=== PATIENT | female | born 1985 | race Caucasian/White ===

== ENCOUNTER 2023-12-19 09:45 | Emergency (ER) | payer BC, SELFPAY ==
--- NOTE | 2023-12-19 09:55 | ED.GENADULT ---
HPI - General Adult General Chief complaint: Skin/Abscess/Foreign Body Stated complaint: R EYE SWELLING/REDNESS Time Seen by Provider: 12/19/23 09:58 Source: patient Mode of arrival: ambulatory Limitations: no limitations History of Present Illness HPI narrative: 38-year-old female patient presents to [facility] with complaints of pain to the right eye area. Patient states she woke up this morning with her the skin around the right eye all read. Patient does were glasses but denies any new vision changes. Denies any drainage coming from the eye. Patient states that the area is painful. Patient states she has been dealing with issues of having some low allergic reactions she thinks could be associated with her makeup. Patient states she does take Claritin daily. Related Data Allergies Allergy/AdvReac Type Severity Reaction Status Date / Time amoxicillin [From Augmentin] AdvReac Vomiting Verified 12/19/23 10:09 clavulanic acid AdvReac Vomiting Verified 12/19/23 10:09 [From Augmentin] Review of Systems Review of Systems: CONSTITUTIONAL: Denies fever, chills, or sweats. EYES: Denies visual changes, redness, or discharge. ENT: Denies rhinorrhea, congestion, sore throat, or otalgia. CARDIOVASCULAR: Denies chest pain, palpitations, or edema. RESPIRATORY: Denies cough or dyspnea. GASTROINTESTINAL: Denies abdominal pain, nausea, vomiting, or diarrhea. GENITOURINARY: Denies dysuria or hematuria. SKIN: Positive rash with pain to the right eye area. No itching. no open wounds or drainage noted MUSCULOSKELETAL: Denies back pain, joint pain, or myalgia. NEUROLOGIC: Denies headache, numbness, or weakness. PSYCHIATRIC: Denies anxiety or depression. PMFSH Comments At the time of my signature I agree with nursing past medical history, surgical, social, and family history. There is no relevant family history pertinent to the presenting complaint. Exam Narrative: GENERAL: Well-appearing, well-nourished, and in no acute distress. HEAD: Normocephalic, atraumatic. EYES: PERRLA and EOMI. ENT: Nares clear, no rhinorrhea or epistaxis. Mucous membranes moist. NECK: Supple. No lymphadenopathy CHEST: Clear to auscultation. No respiratory distress. HEART: Regular rate and rhythm. No murmur heard. Normal peripheral pulses. ABDOMEN: Soft, nontender, nondistended, normal active bowel sounds. EXTREMITIES: Normal range of motion. No edema. SKIN: patient has an area of redness and it is slightly warm to the lateral side of the right eye with some swelling compared to the left eye. There is no open wounds or drainage noted. It does not appear that eyeball itself is affected at all. NEURO: No focal deficits. Alert and oriented x3. Course Course Level of Care: Express Care Visit Vital Signs Vital signs: Vital Signs Temperature 37.6 C H 12/19/23 09:59 Pulse Rate 108 H 12/19/23 09:59 Respiratory Rate 16 12/19/23 09:59 Blood Pressure 134/79 12/19/23 09:59 Pulse Oximetry 100 12/19/23 09:59 Temperature 37.6 C H 12/19/23 09:59 Pulse Rate 108 H 12/19/23 09:59 Respiratory Rate 16 12/19/23 09:59 Blood Pressure 134/79 12/19/23 09:59 Pulse Oximetry 100 12/19/23 09:59 vital signs reviewed. The patient has been informed that they may have pre-hypertension or Hypertension based on a BP reading in the department. I recommend that the patient call the primary care provider listed on their discharge instructions or a physician of their choice this week to arrange follow up for further evaluation of possible pre-hypertension or Hypertension Medical Decision Making MDM Narrative Medical decision making narrative: Plan care for patient is to discharge home with oral antibiotics for a possible periorbital cellulitis infection. Discussed with patient that she should clean the area with soap water I would recommend that she not wear makeup at this time and possibly get all new makeup in case it has bacteria i
[2023-12-19 09:59] VITALS: BP 134/79; PULSE 108; RESP 16; TEMP 37.6; O2SAT 100
== END 2023-12-19 10:22 | disposition home or self-care (01) ==
PROVIDERS: Emergency Provider Nurse Practitioner Family; PCP Nurse Practitioner
DX: L03.213 Periorbital cellulitis (principal)
CPT/HCPCS: 99213; G0463

== ENCOUNTER 2024-01-05 09:25 | Outpatient (CLI) | payer BC, SELFPAY ==
[2024-01-05 19:33] LABS: Basophils Absolute Auto 0.1 K/mm3 (0.0-0.1); Basophils Percent Auto 0.6 % (0.2-1.2); Hematocrit 41.8 % (37.0-47.0); Hemoglobin 13.1 g/dL (12.0-15.0); Immature Granulocyte Absolute 0.02 K/mm3 (0.00-0.031); Immature Granulocyte Percent A 0.3 % (0-0.5); Lymphocytes Absolute Auto 2.36 K/mm3 (0.9-3.2); Lymphocytes Percent Auto 30.6 % (18.3-44.2); Mean Corpuscular HGB Conc 31.3 g/dl (32-36); Mean Corpuscular Hemoglobin 29.4 pg (26-34); Mean Corpuscular Volume 93.9 fl (80-100); Mean Platelet Volume 10.3 fl (7.4-10.4); Monocytes Absolute Auto 0.6 K/mm3 (0.1-0.6); Monocytes Percent Auto 7.5 % (2.6-8.5); Neutrophils Absolute Auto 4.7 K/mm3 (1.3-6.7); Platelet Count Result 278 k/mm3 (150-375); Red Blood Count 4.45 M/mm3 (4.2-5.4); Red Cell Distribution Width 13.2 % (11.5-14.5); White Blood Count 7.7 K/mm3 (4.5-10.0)
[2024-01-05 21:19] LABS: Chloride 100 mmol/L (98-107); Potassium 4.4 mmol/L (3.4-5.0)
[2024-01-05 21:25] LABS: Alanine Aminotransferase 49 U/L (6-35); Albumin Level 4.5 g/dL (3.5-5.1); Alkaline Phosphatase 74 U/L (38-126); Anion Gap 8 mmol/L (4-12); Aspartate Amino Transferase 79 U/L (14-36); Bilirubin,Total 0.4 mg/dL (0.2-1.3); Blood Urea Nitrogen 18 mg/dL (7-17); Calcium 9.6 mg/dL (8.4-10.2); Carbon Dioxide 31 mmol/L (22-30); Cholesterol 172 mg/dL (0-200); Estimated Glomerular Filt Rate > 60; Glucose 93 mg/dL (65-110); HDL Direct 43 mg/dL; Sodium 139 mmol/L (137-145); Triglycerides 141 mg/dL (<150)
[2024-01-05 21:30] LABS: LDL Cholesterol Direct 96 mg/dL
[2024-01-05 21:49] LABS: Thyroid Stimulating Hormone 0.553 uIU/mL (0.465-4.680)
== END 2024-01-05 09:26 | disposition home or self-care (01) ==
LOC: ANHGOSHLAB 09:26
PROVIDERS: PCP Nurse Practitioner; Visit Provider Nurse Practitioner
DX: F32.A Depression, unspecified (principal); F41.9 Anxiety disorder, unspecified; R00.0 Tachycardia, unspecified; Z13.220 Encounter for screening for lipoid disorders
CPT/HCPCS: 36415; 80053; 80061; 82306; 84443; 85025

== ENCOUNTER 2024-06-17 12:16 | Emergency (ER) | payer BC, SELFPAY ==
[2024-06-17 12:24] VITALS: BP 142/79; PULSE 109; RESP 16; TEMP 36.8; O2SAT 99
--- NOTE | 2024-06-17 12:56 | ED_ITS ---
HPI - URI/Sore Throat General Chief Complaint: Upper Respiratory Infection Stated Complaint: COUGH/SINUS PRESSURE/SOB Time Seen by Provider: 06/17/24 12:57 Source: patient, RN notes reviewed and old records reviewed Mode of arrival: ambulatory Limitations: no limitations History of Present Illness HPI Narrative: 39 year old female who [facility] with complaints of 4-5 day history of sinus congestion with sinus pressure, cough with some shortness of breath and headache pain. Patient reports that hshe has been taking Sudafed and Mucines for her symptoms. Patient reports no history of asthma, respirations even and nonlabored, SAO2 99% on room air, with no tachypnea noted MD elicited complaint: cough, rhinorrhea, nasal congestion, sinus pain and other (dyspnea) Onset (ago): day(s) (4-5 days) Pain scale (0-10): 4 Able to tolerate fluids by mouth: Yes Treatments prior to arrival: other (Sudafed and Mucinex) Related Data Allergies Allergy/AdvReac Type Severity Reaction Status Date / Time amoxicillin (From Augmentin) AdvReac Vomiting Verified 06/17/24 12:25 clavulanic acid (From AdvReac Vomiting Verified 06/17/24 12:25 Augmentin) Review of Systems Review of Systems: CONSTITUTIONAL: Denies malaise, chills, sweats, or fever. EYES: Denies visual changes, redness, or discharge. ENT: Reports rhinorrhea, congestion, sinus pain,no otalgia and no sore throat. CARDIOVASCULAR: Denies chest pain, palpitations, or edema. RESPIRATORY: Reports cough.? reports some feelings of dyspnea. GASTROINTESTINAL: Denies abdominal pain, nausea, vomiting, diarrhea SKIN: Denies rash or itching. MUSCULOSKELETAL: Denies myalgia. NEUROLOGIC:Reports headache. All systems reviewed & are unremarkable except as noted in HPI and below PMFSH Past Medical History Medical History (Updated 06/19/24 @ 12:23 by Vika Sorto NP) Anxiety and depression GERD (gastroesophageal reflux disease) Arthritis Surgical History Surgical History (Updated 06/19/24 @ 12:23 by Vika Sorto NP) History of adenoidectomy Social History Social History (Updated 01/05/24 @ 08:44 by Anabella Varela CMA) Smoking status: Never smoker Alcohol intake: current Substance use: never Substance use type: does not use Comments At time of signature, agree with nursing past medical, surgical, social and family history. There is no relevant family history pertinent to the presenting complaint Exam Narrative: GENERAL: Well-appearing, well-nourished, and in no acute distress. HEAD: Normocephalic EYES: PERRLA, conjunctivae clear ENT: Nares clear, turbinates edematous and erythematous, clear discharge. Mucous membranes moist. TM pearly grover with dull light reflex bilaterally; no tragal tenderness. Oropharynx erythematous without lesions. Tonsils not enlarged and without exudate, no drooling, no hoarseness, no trismus, uvula midline.post nasal drainage NECK: Supple. No lymphadenopathy CHEST: Clear to auscultation, breath sounds equal. No wheezing, rhonchi, rales, or stridor. No respiratory distress, speaks in full sentences.no tachypnea, SAO2 99% on room air HEART: Regular rate and rhythm. No murmur heard. SKIN: Warm, dry, no rash. NEURO: Alert and oriented x3. PSYCH: Normal mood and affect Course Course Emergency Course: Patient is aware of diagnosis, understands and agrees to treatment plan.? Anticipatory guidance given.? Patient agrees to follow-up as directed and is aware of reasons to seek care at the emergency department. Portions of this record may have been created with voice recognition software Level of Care: Express Care Visit Vital Signs Vital signs: Vital Signs Temperature 36.8 C 06/17/24 12:24 Pulse Rate 109 H 06/17/24 12:24 Respiratory Rate 16 06/17/24 12:24 Blood Pressure 142/79 H 06/17/24 12:24 Pulse Oximetry 99 06/17/24 12:24 Temperature 36.8 C 06/17/24 12:24 Pulse Rate 109 H 06/17/24 12:24 Respiratory Rate 16 06/17/24 12:24 Blood Pressure 142/79 H 06/17/24 12:24 Pulse Oximetry 99 06/17/24 12:24 Reviewed MDM - URI/Sore Throat MDM Narrative Medical decision making narrative: Differential diagnosis considered: Ledezma virus, strep pharyngitis, allergic rhinitis, upper respiratory tract infection, sinusitis, rhinosinusitis, nasopharyngitis. viral pharyngitis, otitis media, otitis externa, pneumonia, bronchitis, viral cough syndrome, viral syndrome, and influenza.? Exam findings show no acute concerns or changes; patient is non-toxic appearing and is in no distress.? Patient is appropriate for outpatient treatment and follow-up. Differential Diagnosis Differential diagnosis: Likely upper respiratory infection, sinusitis, viral infection, influenza and other (COVID) Medical Records Attestation: I reviewed the patient's medical records. Lab Data Attestation: I reviewed the patient's lab results. Lab results narrative: Influenza A negative, Influenza B negative, COVID antigen negative Labs: Lab Results 06/17/24 Range/Units 13:29 POC Influenza A Ag Negative (Negative) POC Influenza B Ag Negative (Negative) POC SARS CoV-2 Ag Negative (Negative) reviewed Critical Care Time Critical Care Time Critical Care Time: No Discharge Plan Discharge Clinical Impression: URI with cough and congestion Patient Disposition: Home, Self-Care Condition: Stable Instructions: Antibiotic Form, Upper Respiratory Infection (ED) Additional Instructions: Increase fluids especially juices and water [id number] cough and cold medicine of your choice for your symptoms Prescription cough medicine as directed--caution drowsiness and no driving or alcohol Tylenol or ibuprofen any fever pain Zyrtec Claritin or Tereza heat to the face 20-30 minutes 4-6 times a day for pain Salt water gargles, throat lozenges or throat sprays as desired Antibiotic as directed--finished the medication If your symptoms persist, change or worsen significantly before you can contact your personal physician then please, without delay, go to the emergency department for further evaluation. Follow-up with PCP in 7-10 days or sooner if needed Follow up with PCP soon in regards to your blood pressure which is elevated above threshold for referral. Blood pressure above 120/80 may indicate pre- hypertension.142/79 Patient Language: Romansh Prescriptions: New promethazine-DM 6.25-15 mg/5 mL syrup 5 ml PO Q6H PRN (Reason: cough) Qty: 120 0RF azithromycin 250 mg tablet See Rx Instructions .ROUTE .COMPLEX Qty: 6 0RF Rx Instructions: For 250 mg dose pack: take 500 mg today (day 1), then 250 mg for 4 days (days 2-5) Follow-up/Referrals: Carolina Hernandez NP [Primary Care Provider] - Time of Disposition: 13:13 Quality Landy Coma Scale Eyes: Open Verbal: Oriented and Alert Motor: Follows Commands Landy Coma Total Score: 15
[2024-06-17 13:31] LABS: EDCOVIDSCREEN Negative (Negative); EDINFLUASCREEN Negative (Negative); EDINFLUBSCREEN Negative (Negative)
== END 2024-06-17 13:30 | disposition home or self-care (01) ==
PROVIDERS: Emergency Provider Registered Nurse; PCP Nurse Practitioner
DX: J06.9 Acute upper respiratory infection, unspecified (principal); R05.9 Cough, unspecified; Z20.822 Contact with and (suspected) exposure to COVID-19; K21.9 Gastro-esophageal reflux disease without esophagitis; M19.90 Unspecified osteoarthritis, unspecified site
CPT/HCPCS: 87426; 87804; 99213; G0463